=== PATIENT | female | born 1985 | race Caucasian/White ===

== ENCOUNTER 2024-01-01 11:26 | Outpatient (CLI) | payer OTHER, SELFPAY | END 2024-01-01 11:27 | disposition home or self-care (01) | LOC: NFLDREF 11:27 | PROVIDERS: PCP Family Medicine; Visit Provider Physician Assistant | DX: R10.2 Pelvic and perineal pain (principal) | CPT/HCPCS: 87086 ==

== ENCOUNTER 2024-06-30 08:24 | Outpatient (CLI) | payer OTHER, SELFPAY | END 2024-06-30 08:25 | disposition home or self-care (01) | LOC: NFLDREF 07-01 11:47 | PROVIDERS: PCP Family Medicine; Referring Provider Family Medicine; Visit Provider Physician Assistant | DX: Z13.220 Encounter for screening for lipoid disorders (principal); Z13.1 Encounter for screening for diabetes mellitus; Z13.29 Encounter for screening for other suspected endocrine disorder | CPT/HCPCS: 80061; 82947; 84443 ==